=== PATIENT | female | born 1975 | race American Indian/Alaskan Native ===

== ENCOUNTER 2016-11-18 09:23 | Emergency (ER) | payer SELFPAY ==
[2016-11-18 10:00] LABS: Basophils % (Auto) 1.3 % (0.0-1.8); Eosinophils % (Auto) 3.1 % (0.0-4.3); Hematocrit 37.4 % (30.3-42.9); Hemoglobin 11.8 gm/dl (10.1-14.3); Mean Corpuscular HGB Conc 31 % (30-34); Mean Corpuscular Volume 80 fl (79-97); Platelet Count 381 K/mm3 (140-440); Red Blood Count 4.67 M/mm3 (3.65-5.03); Red Cell Distribution Width 16.4 % (13.2-15.2); White Blood Count 7.4 K/mm3 (4.5-11.0)
[2016-11-18 10:01] LABS: Mean Corpuscular Hemoglobin 25 pg (28-32)
[2016-11-18 10:11] LABS: Anion Gap 18 mmol/L; BUN/Creatinine Ratio 15.55; Blood Urea Nitrogen 14 mg/dL (7-17); Calcium 8.7 mg/dL (8.4-10.2); Carbon Dioxide 22 mmol/L (22-30); Chloride 105.7 mmol/L (98-107); Glucose 94 mg/dL (65-100); Sodium 142 mmol/L (137-145)
[2016-11-18 10:40] LABS: Bacteria,Urine 1+ /HPF (Negative); Bilirubin,Urine NEG (Negative); Blood,Urine NEG (Negative); Ketones,Urine NEG (Negative); Leukocyte Esterase,Urine SM (Negative); Mucus,Urine 2+ /HPF; Nitrite,Urine NEG (Negative); Protein,Urine <15 mg/dL mg/dL (Negative)
--- NOTE | 2016-11-18 10:54 | Emergency Department Report ---
ED Abdominal Pain HPI - General Chief Complaint: Abdominal Pain Stated Complaint: ABD PAIN/HEADACHE/DIARRHEA Time Seen by Provider: 11/18/16 10:53 Source: patient Mode of arrival: Ambulatory Limitations: No Limitations - History of Present Illness Initial Comments: Patient describes a crampy generalized abdominal pain associated with diarrhea past few days. She states she is currently nauseated. She has not had any recent vomiting. She's had no signs of GI bleeding. She denies fever or chills sick contacts or any unusual diet or recent travel. She admits medical noncompliance with her prescription for hypertension. MD Complaint: abdominal pain -: days(s) Location: diffuse Radiation: none Migration to: no migration Severity: moderate Severity scale (0 -10): 7 Quality: cramping Consistency: intermittent Improves With: nothing Worsens With: nothing Associated Symptoms: nausea, vomiting, diarrhea - Related Data Home Medications Medication Instructions Recorded Confirmed Last Taken Aspirin [Aspirin TAB] 325 mg PO QDAY 09/16/14 10/24/15 10/24/15 Carvedilol [Coreg] 12.5 mg PO DAILY 09/16/14 10/24/15 10/24/15 Lisinopril 10 mg PO DAILY 09/16/14 10/24/15 10/24/15 Metformin HCl [metFORMIN ER] 500 mg PO BID 09/16/14 10/24/15 10/24/15 Pravastatin (Nf) [Pravachol] 40 mg PO QHS 09/16/14 10/24/15 10/24/15 Topiramate [Topamax] 25 mg PO BID PRN 09/16/14 10/24/15 10/24/15 amLODIPine [Norvasc] 10 mg PO DAILY 09/16/14 10/24/15 10/24/15 Previous Rx's Medication Instructions Recorded Last Taken Type Metaxalone [Skelaxin] 800 mg PO TID PRN #21 tablet 10/24/15 Unknown Rx traMADol [Ultram] 50 mg PO Q4HR PRN #20 tablet 10/24/15 Unknown Rx Cyclobenzaprine HCl [Flexeril 5 MG 5 mg PO Q8HR PRN #10 tab 12/16/15 Unknown Rx TAB] Ondansetron [Zofran TAB] 4 mg PO Q8HR PRN #14 tablet 12/16/15 Unknown Rx Ondansetron [Zofran Odt] 4 mg PO Q6H PRN #7 tab.rapdis 11/18/16 Unknown Rx amLODIPine [Norvasc] 5 mg PO DAILY #30 tab 11/18/16 Unknown Rx traMADol [Ultram] 50 mg PO Q4HR PRN #14 tablet 11/18/16 Unknown Rx Allergies Allergy/AdvReac Type Severity Reaction Status Date / Time morphine Allergy Itching Verified 05/26/14 07:39 Penicillins AdvReac Shortness Verified 05/26/14 07:39 of Breath IVP contrast Allergy Hives Uncoded 05/26/14 07:39 ED Review of Systems ROS: Stated complaint: ABD PAIN/HEADACHE/DIARRHEA Other details as noted in HPI Constitutional: denies: chills, fever Eyes: denies: eye pain, eye discharge, vision change ENT: denies: ear pain, throat pain Respiratory: denies: cough, shortness of breath, wheezing Cardiovascular: denies: chest pain, palpitations Endocrine: no symptoms reported Gastrointestinal: as per HPI Genitourinary: denies: urgency, dysuria, discharge Musculoskeletal: denies: back pain, joint swelling, arthralgia Skin: denies: rash, lesions Neurological: denies: headache, weakness, paresthesias Psychiatric: denies: anxiety, depression Hematological/Lymphatic: denies: easy bleeding, easy bruising ED Past Medical Hx - Past Medical History Previous Medical History?: Yes Hx Hypertension: Yes Hx CVA: Yes (11/2012) Hx Diabetes: Yes Hx Arthritis: Yes Additional medical history: Hyperlipidemia, "herniated disc in neck" - Surgical History Past Surgical History?: No Additional Surgical History: kidney stone removal - Social History Smoking Status: Current Some Day Smoker Substance Use Type: Alcohol - Medications Home Medications: Home Medications Medication Instructions Recorded Confirmed Last Taken Type Aspirin [Aspirin TAB] 325 mg PO QDAY 09/16/14 10/24/15 10/24/15 History Carvedilol [Coreg] 12.5 mg PO DAILY 09/16/14 10/24/15 10/24/15 History Lisinopril 10 mg PO DAILY 09/16/14 10/24/15 10/24/15 History Metformin HCl [metFORMIN ER] 500 mg PO BID 09/16/14 10/24/15 10/24/15 History Pravastatin (Nf) [Pravachol] 40 mg PO QHS 09/16/14 10/24/15 10/24/15 History Topiramate [Topamax] 25 mg PO BID PRN 09/16/14 10/24/15 10/24/15 History amLODIPine [Norvasc] 10 mg PO DAILY 09/16/14 10/24/15 10/24/15 History Metaxalone [Skelaxin] 800 mg PO TID PRN #21 tablet 10/24/15 Unknown Rx traMADol [Ultram] 50 mg PO Q4HR PRN #20 tablet 10/24/15 Unknown Rx Cyclobenzaprine HCl [Flexeril 5 MG 5 mg PO Q8HR PRN #10 tab 12/16/15 Unknown Rx TAB] Ondansetron [Zofran TAB] 4 mg PO Q8HR PRN #14 tablet 12/16/15 Unknown Rx Ondansetron [Zofran Odt] 4 mg PO Q6H PRN #7 tab.rapdis 11/18/16 Unknown Rx amLODIPine [Norvasc] 5 mg PO DAILY #30 tab 11/18/16 Unknown Rx traMADol [Ultram] 50 mg PO Q4HR PRN #14 tablet 11/18/16 Unknown Rx ED Physical Exam - General Limitations: No Limitations General appearance: alert, in no apparent distress - Head Head exam: Present: atraumatic, normocephalic - Eye Eye exam: Present: normal appearance, PERRL, EOMI. Absent: scleral icterus - ENT ENT exam: Present: normal exam, mucous membranes moist - Neck Neck exam: Present: normal inspection. Absent: tenderness, meningismus - Respiratory Respiratory exam: Present: normal lung sounds bilaterally. Absent: respiratory distress - Cardiovascular Cardiovascular Exam: Present: regular rate, normal rhythm. Absent: systolic murmur, diastolic murmur, rubs, gallop - GI/Abdominal GI/Abdominal exam: Present: soft, normal bowel sounds. Absent: distended, tenderness, guarding, rebound, rigid, organomegaly, mass, bruit, pulsatile mass , hernia - Extremities Exam Extremities exam: Present: normal inspection - Back Exam Back exam: Present: normal inspection - Neurological Exam Neurological exam: Present: alert, oriented X3, CN II-XII intact. Absent: motor sensory deficit - Psychiatric Psychiatric exam: Present: normal affect, normal mood - Skin Skin exam: Present: warm, dry, intact, normal color. Absent: rash ED Course Vital Signs 11/18/16 11/18/16 11/18/16 09:35 10:12 12:36 Temperature 98 F 97.6 F Pulse Rate 82 79 Respiratory 18 24 20 Rate Blood Pressure 149/102 Blood Pressure 138/94 [Left] Blood Pressure [Right] O2 Sat by Pulse 100 100 Oximetry 11/18/16 14:13 Temperature 98.6 F Pulse Rate 72 Respiratory 20 Rate Blood Pressure Blood Pressure [Left] Blood Pressure 142/77 [Right] O2 Sat by Pulse 100 Oximetry - Reevaluation(s) Reevaluation #1: He patient Was given fluids and analgesia. She improved. She will be given a prescription for hypertension and a referral for follow-up care. 11/18/16 14:25 ED Medical Decision Making - Lab Data Result diagrams: 11/18/16 09:47 11/18/16 09:47 Laboratory Results - last 24 hr 11/18/16 11/18/16 11/18/16 09:47 09:47 10:28 WBC 7.4 RBC 4.67 Hgb 11.8 Hct 37.4 MCV 80 MCH 25 L MCHC 31 RDW 16.4 H Plt Count 381 Lymph % (Auto) 29.0 [place] % (Auto) 8.7 H Eos % (Auto) 3.1 Baso % (Auto) 1.3 Lymph # 2.2 [place] # 0.6 Eos # 0.2 Baso # 0.1 Seg Neutrophils % 57.9 Seg Neutrophils # 4.3 Sodium 142 Potassium 4.0 Chloride 105.7 Carbon Dioxide 22 Anion Gap 18 BUN 14 Creatinine 0.9 Estimated GFR > 60 BUN/Creatinine Ratio 15.55 Glucose 94 POC Glucose Calcium 8.7 Urine Color Yellow Urine Turbidity Clear Urine pH 5.0 Ur Specific [place] 1.029 Urine Protein <15 mg/dl Urine Glucose (UA) Neg Urine Ketones Neg Urine Blood Neg Urine Nitrite Neg Urine Bilirubin Neg Urine Urobilinogen 2.0 Ur Leukocyte Esterase Sm Urine WBC (Auto) 2.0 Urine RBC (Auto) 3.0 U Epithel Cells (Auto) 6.0 Urine Bacteria (Auto) 1+ Calcium Oxalate Crystal 3+ Urine Mucus 2+ 11/18/16 10:29 WBC RBC Hgb Hct MCV MCH MCHC RDW Plt Count Lymph % (Auto) [place] % (Auto) Eos % (Auto) Baso % (Auto) Lymph # [place] # Eos # Baso # Seg Neutrophils % Seg Neutrophils # Sodium Potassium Chloride Carbon Dioxide Anion Gap BUN Creatinine Estimated GFR BUN/Creatinine Ratio Glucose POC Glucose 110 H Calcium Urine Color Urine Turbidity Urine pH Ur Specific [place] Urine Protein Urine Glucose (UA) Urine Ketones Urine Blood Urine Nitrite Urine Bilirubin Urine Urobilinogen Ur Leukocyte Esterase Urine WBC (Auto) Urine RBC (Auto) U Epithel Cells (Auto) Urine Bacteria (Auto) Calcium Oxalate Crystal Urine Mucus Critical care attestation.: If time is entered above; I have spent that time in minutes in the direct care of this critically ill patient, excluding procedure time. ED Disposition Clinical Impression: Gastroenteritis, Essential hypertension Abdominal pain Qualifiers: Abdominal location: unspecified location Qualified Code(s): R10.9 - Unspecified abdominal pain Disposition: TO HOME OR SELFCARE Is pt being admited?: No Does the pt Need Aspirin: No Condition: Stable Instructions: Abdominal Pain (ED), Hypertension (ED) Additional Instructions: Light diet and advance as tolerated. Follow up with primary care provider. Return any acute change or worsening symptoms. Prescriptions: amLODIPine [Norvasc] 5 mg PO DAILY #30 tab Ondansetron [Zofran Odt] 4 mg PO Q6H PRN #7 tab.rapdis PRN Reason: Nausea traMADol [Ultram] 50 mg PO Q4HR PRN #14 tablet PRN Reason: Pain Referrals: PRIMARY CARE, [Primary Care Provider] - 3-5 Days Time of Disposition: 14:29
[2016-11-18] MEDS ORDERED: NACL 0.9% 1000 ML 1,000 ML IV ONE (12:08)
[2016-11-18] MEDS ORDERED: ZOFRAN IV ONE (12:08)
[2016-11-18] MEDS ORDERED: BENADRYL IV ONE (12:08)
[2016-11-18] MEDS ORDERED: DILAUDID IV ONE (12:10)
[2016-11-18 14:14] VITALS: BP 142/77
== END 2016-11-18 16:09 | disposition home or self-care (01) ==
LOC: ED 09:23
DX: K52.9 Noninfective gastroenteritis and colitis, unspecified (principal); I10 Essential (primary) hypertension; M19.90 Unspecified osteoarthritis, unspecified site; E11.9 Type 2 diabetes mellitus without complications; Z72.0 Tobacco use; Z86.73 Personal history of transient ischemic attack (TIA), and cerebral infarction without residual deficits; Z79.82 Long term (current) use of aspirin; Z88.5 Allergy status to narcotic agent; Z88.0 Allergy status to penicillin; Z91.041 Radiographic dye allergy status
CPT/HCPCS: 36415; 80048; 81001; 81025; 82962; 85025; 96361; 96374; 96375; 99283; J1170; J1200; J2405; J7030

== ENCOUNTER 2016-12-14 08:26 | Emergency (ER) | payer SELFPAY ==
[2016-12-14 08:54] VITALS: BP 160/100
[2016-12-14 09:23] LABS: Basophils % (Auto) 1.1 % (0.0-1.8); Eosinophils % (Auto) 1.9 % (0.0-4.3); Hematocrit 37.1 % (30.3-42.9); Hemoglobin 11.7 gm/dl (10.1-14.3); Mean Corpuscular HGB Conc 32 % (30-34); Mean Corpuscular Volume 80 fl (79-97); Platelet Count 367 K/mm3 (140-440); Red Blood Count 4.65 M/mm3 (3.65-5.03); Red Cell Distribution Width 15.9 % (13.2-15.2)
[2016-12-14 09:27] LABS: Mean Corpuscular Hemoglobin 25 pg (28-32)
[2016-12-14 09:47] LABS: Alanine Aminotransferase 14 units/L (7-56); Albumin 3.8 g/dL (3.9-5); Albumin/Globulin Ratio 1.3 %; Alkaline Phosphatase 76 units/L (35-129); Anion Gap 15 mmol/L; Blood Urea Nitrogen 10 mg/dL (7-17); Calcium 8.9 mg/dL (8.4-10.2); Carbon Dioxide 25 mmol/L (22-30); Chloride 103.7 mmol/L (98-107); Glucose 111 mg/dL (65-100); Potassium 3.7 mmol/L (3.6-5.0); Sodium 140 mmol/L (137-145); Total Protein 6.8 g/dL (6.3-8.2)
--- NOTE | 2016-12-14 10:21 | Emergency Department Report ---
ED Syncope HPI - General Chief Complaint: Syncope Stated Complaint: SYNCOPAL EPISODE Time Seen by Provider: 12/14/16 10:06 Source: patient, police, EMS Exam Limitations: no limitations - History of Present Illness Initial Comments: 41 years old female history of hypertension borderline diabetes and CVA with left side weakness that is has no residual now. Patient stated that she was riding the bus to the [employer] station when she stand up to go down, she passed out fell and hit her head. Patient stated that she lost her consciousness for a few seconds. She is complaining of headache. She stated that she has some shortness of breath when she stands up but that is gone now. Patient denied any focal weakness or numbness or tingling sensation. No bowel or bladder dysfunction. Timing/Prior Episodes: single episode today Precipitating Factors: Positive: lightheadedness Context: standing Loss of Consciousness: brief (seconds) Current Symptoms: back to normal, headache, injury - Related Data Allergies/Adverse Reactions: Allergies morphine Allergy (Verified 12/14/16 08:47) Itching Penicillins Adverse Reaction (Verified 12/14/16 08:47) Shortness of Breath IVP contrast Allergy (Uncoded 05/26/14 07:39) Hives Home Medications: Ambulatory Orders Aspirin [Aspirin TAB] 325 mg PO QDAY 09/16/14 Carvedilol [Coreg] 12.5 mg PO DAILY 09/16/14 Lisinopril 10 mg PO DAILY 09/16/14 Metformin HCl [metFORMIN ER] 500 mg PO BID 09/16/14 Pravastatin (Nf) [Pravachol] 40 mg PO QHS 09/16/14 Topiramate [Topamax] 25 mg PO BID PRN 09/16/14 amLODIPine [Norvasc] 10 mg PO DAILY 09/16/14 Metaxalone [Skelaxin] 800 mg PO TID PRN #21 tablet 10/24/15 traMADol [Ultram] 50 mg PO Q4HR PRN #20 tablet 10/24/15 Cyclobenzaprine HCl [Flexeril 5 MG TAB] 5 mg PO Q8HR PRN #10 tab 12/16/15 Ondansetron [Zofran TAB] 4 mg PO Q8HR PRN #14 tablet 12/16/15 Ondansetron [Zofran Odt] 4 mg PO Q6H PRN #7 tab.rapdis 11/18/16 amLODIPine [Norvasc] 5 mg PO DAILY #30 tab 11/18/16 traMADol [Ultram] 50 mg PO Q4HR PRN #14 tablet 11/18/16 Metaxalone [Skelaxin] 800 mg PO TID #30 tablet 12/14/16 Naproxen [Naprosyn] 500 mg PO BID #14 tablet 12/14/16 ED Review of Systems ROS: Stated complaint: SYNCOPAL EPISODE Other details as noted in HPI Comment: All other systems reviewed and negative Constitutional: denies: chills, diaphoresis Eyes: denies: eye pain, eye discharge, vision change ENT: denies: epistaxis Respiratory: denies: cough, orthopnea, shortness of breath, SOB with exertion, SOB at rest Cardiovascular: denies: chest pain, palpitations Gastrointestinal: denies: abdominal pain, nausea, vomiting, diarrhea Neurological: headache. denies: weakness, numbness, paresthesias, confusion, abnormal gait, vertigo ED Past Medical Hx - Past Medical History Hx Hypertension: Yes Hx CVA: Yes (11/2012) Hx Diabetes: Yes Hx Arthritis: Yes Additional medical history: Hyperlipidemia, "herniated disc in neck" - Surgical History Additional Surgical History: kidney stone removal - Social History Smoking Status: Current Some Day Smoker - Medications Home Medications: Home Medications Medication Instructions Recorded Confirmed Last Taken Type Aspirin [Aspirin TAB] 325 mg PO QDAY 09/16/14 10/24/15 10/24/15 History Carvedilol [Coreg] 12.5 mg PO DAILY 09/16/14 10/24/15 10/24/15 History Lisinopril 10 mg PO DAILY 09/16/14 10/24/15 10/24/15 History Metformin HCl [metFORMIN ER] 500 mg PO BID 09/16/14 10/24/15 10/24/15 History Pravastatin (Nf) [Pravachol] 40 mg PO QHS 09/16/14 10/24/15 10/24/15 History Topiramate [Topamax] 25 mg PO BID PRN 09/16/14 10/24/15 10/24/15 History amLODIPine [Norvasc] 10 mg PO DAILY 09/16/14 10/24/15 10/24/15 History Metaxalone [Skelaxin] 800 mg PO TID PRN #21 tablet 10/24/15 Unknown Rx traMADol [Ultram] 50 mg PO Q4HR PRN #20 tablet 10/24/15 Unknown Rx Cyclobenzaprine HCl [Flexeril 5 MG 5 mg PO Q8HR PRN #10 tab 12/16/15 Unknown Rx TAB] Ondansetron [Zofran TAB] 4 mg PO Q8HR PRN #14 tablet 12/16/15 Unknown Rx Ondansetron [Zofran Odt] 4 mg PO Q6H PRN #7 tab.rapdis 11/18/16 Unknown Rx amLODIPine [Norvasc] 5 mg PO DAILY #30 tab 11/18/16 Unknown Rx traMADol [Ultram] 50 mg PO Q4HR PRN #14 tablet 11/18/16 Unknown Rx Metaxalone [Skelaxin] 800 mg PO TID #30 tablet 12/14/16 Unknown Rx Naproxen [Naprosyn] 500 mg PO BID #14 tablet 12/14/16 Unknown Rx ED Physical Exam - General Limitations: No Limitations General appearance: alert, in no apparent distress - Head Head exam: Present: other (tenderness posterior skull) - Eye Eye exam: Present: normal appearance Pupils: Present: normal accommodation - ENT ENT exam: Present: normal exam, normal orophraynx, mucous membranes moist - Neck Neck exam: Present: normal inspection, full ROM. Absent: tenderness, meningismus, lymphadenopathy, thyromegaly - Respiratory Respiratory exam: Present: normal lung sounds bilaterally. Absent: respiratory distress, wheezes, rales, rhonchi, stridor, chest wall tenderness - Cardiovascular Cardiovascular Exam: Present: regular rate, normal rhythm, normal heart sounds - GI/Abdominal GI/Abdominal exam: Present: soft. Absent: distended, tenderness, guarding, rebound, rigid, normal bowel sounds - Extremities Exam Extremities exam: Present: normal inspection, full ROM. Absent: tenderness - Back Exam Back exam: Present: normal inspection, tenderness (thoracic spine). Absent: CVA tenderness (R), CVA tenderness (L), muscle spasm, paraspinal tenderness, vertebral tenderness - Neurological Exam Neurological exam: Present: alert, oriented X3, CN II-XII intact - Skin Skin exam: Present: warm, intact, normal color ED Course Vital Signs 12/14/16 12/14/16 08:40 10:55 Temperature 97.5 F L Pulse Rate 75 Respiratory 18 18 Rate Blood Pressure 160/100 O2 Sat by Pulse 100 Oximetry - Reevaluation(s) Reevaluation #1: 12/14/16 12:03 Patient stated that she is feeling much better. Denied any chest pain or shortness of breath at this moment, no dizziness or syncope. CT brain came back with no acute abnormality, chest x-ray and thoracic spine came back negative. I informed the patient about her positive urine drug screen for cocaine patient denied using cocaine. I counseled the patient on that. Patient will be discharged home to follow-up with her primary care physician. 12/14/16 19:18 ED Medical Decision Making - Lab Data Result diagrams: 12/14/16 09:01 12/14/16 09:01 - EKG Data -: EKG Interpreted by Me EKG shows normal: sinus rhythm Rate: normal - EKG Data When compared to previous EKG there are: no significant change Interpretation: no acute changes - Radiology Data Radiology results: report reviewed CT brain, x-ray lumbar x-ray chest was no acute abnormality - Medical Decision Making Patient labs and x-ray and CT scan reviewed which showed no acute abnormality patient is feeling much better no evidence of stroke at this moment or pulmonary embolism or acute coronary syndrome patient will be discharged home to follow up with her primary care physician. Critical care attestation.: If time is entered above; I have spent that time in minutes in the direct care of this critically ill patient, excluding procedure time. ED Disposition Clinical Impression: Syncope, Chest pain Disposition: DC-01 TO HOME OR SELFCARE Is pt being admited?: No Condition: Stable Instructions: Syncope (ED), Chest Pain (ED) Prescriptions: Metaxalone [Skelaxin] 800 mg PO TID #30 tablet Naproxen [Naprosyn] 500 mg PO BID #14 tablet Referrals: PRIMARY CARE, [Primary Care Provider] - 3-5 Days Forms: Work/School Release Form(ED)
[2016-12-14 10:35] LABS: Urine Drugs of Abuse Note Disclamer
[2016-12-14] MEDS ORDERED: TYLENOL PO ONE (10:49)
[2016-12-14 10:56] LABS: Bilirubin,Urine NEG (Negative); Blood,Urine NEG (Negative); Ketones,Urine NEG (Negative); Leukocyte Esterase,Urine NEG (Negative); Nitrite,Urine NEG (Negative); RBC,Urine < 1.0 /HPF (0.0-6.0); Urobilinogen,Urine < 2.0 mg/dL (<2.0)
--- NOTE | 2016-12-14 11:00 | Cat Scan Report ---
CT scan of head without IV contrast: History: Injury. Findings: Ventricles are normal in size and midline in location. No evidence of acute ischemia, hemorrhage or mass. No extra axial fluid collection. Normal brainstem and cerebellum. Normal sinuses and mastoid air cells. No evidence of fracture of the calvarium. Impression: No acute intracranial abnormality.
--- NOTE | 2016-12-14 11:50 | XRay Report ---
AP CHEST: HISTORY: chest pain AP view of the chest demonstrates a normal mediastinal and cardiac contour with clear lungs and normal bony and soft tissue structures. IMPRESSION: Unremarkable AP chest.
--- NOTE | 2016-12-14 11:51 | XRay Report ---
THORACIC SPINE, 2 views: History: Back pain, injury. There is moderate multilevel degenerative disc disease throughout the thoracic spine. There is no evidence for displaced fracture, compression deformity or subluxation. The posterior ribs are grossly intact. IMPRESSION: Mild thoracic spondylosis. No acute injury is appreciated.
== END 2016-12-14 12:35 | disposition home or self-care (01) ==
LOC: ED 08:26
DX: R55 Syncope and collapse (principal); R07.9 Chest pain, unspecified; I10 Essential (primary) hypertension; Z86.73 Personal history of transient ischemic attack (TIA), and cerebral infarction without residual deficits; M19.90 Unspecified osteoarthritis, unspecified site; F17.200 Nicotine dependence, unspecified, uncomplicated; Z88.0 Allergy status to penicillin; Z88.5 Allergy status to narcotic agent
CPT/HCPCS: 36415; 70450; 71010; 72070; 80053; 80307; 81001; 82962; 83735; 84703; 85025; 85379; 93005; 93010; 99285; G0480; 80320

== ENCOUNTER 2017-02-21 07:47 | Emergency (ER) | payer OTHER ==
[2017-02-21 08:25] LABS: Basophils % (Auto) 1.3 % (0.0-1.8); Eosinophils % (Auto) 3.9 % (0.0-4.3); Hematocrit 36.6 % (30.3-42.9); Hemoglobin 11.7 gm/dl (10.1-14.3); Mean Corpuscular HGB Conc 32 % (30-34); Mean Corpuscular Hemoglobin 26 pg (28-32); Mean Corpuscular Volume 80 fl (79-97); Platelet Count 344 K/mm3 (140-440); Red Blood Count 4.57 M/mm3 (3.65-5.03); Red Cell Distribution Width 15.8 % (13.2-15.2); White Blood Count 6.9 K/mm3 (4.5-11.0)
[2017-02-21 08:36] LABS: Anion Gap 17 mmol/L; BUN/Creatinine Ratio 9; Blood Urea Nitrogen 7 mg/dL (7-17); Calcium 8.5 mg/dL (8.4-10.2); Carbon Dioxide 22 mmol/L (22-30); Chloride 104.5 mmol/L (98-107); Glucose 99 mg/dL (65-100); Potassium 3.8 mmol/L (3.6-5.0); Sodium 140 mmol/L (137-145)
[2017-02-21] MEDS ORDERED: ZOFRAN ODT PO ONE (12:48)
--- NOTE | 2017-02-21 12:54 | Emergency Department Report ---
HPI - General Chief Complaint: Nausea/Vomiting/Diarrhea Time Seen by Provider: 02/21/17 12:40 - HPI HPI: Room 5 The patient is a 41-year-old female presenting with a chief complaint of nausea and vomiting. The patient states 3 days ago she ate some egg drop soup in the evening. The patient states the following morning approximately 12 hours after ingestion she developed frequent nausea/vomiting and diarrhea. Patient states she's had intermittent cramping periumbilical abdominal pain. Patient admits to subjective fever. Patient denies any sick contacts and states no one else ate soup. Patient denies any unexplained weight loss. Location: Abdomen Duration: 2 days Quality: Cramping Severity: Moderate Modifying factors: [see above] Context: [see above] Mode of transportation: The patient drove herself to the emergency department and there are no visitors present ED Past Medical Hx - Past Medical History Hx Hypertension: Yes Hx CVA: Yes (11/2012) Hx Diabetes: Yes Hx Arthritis: Yes Hx Kidney Stones: Yes Additional medical history: Hyperlipidemia, "herniated disc in neck" - Surgical History Additional Surgical History: kidney stone removal - Family History Family history: no significant - Social History Smoking Status: Current Some Day Smoker Substance Use Type: None (denies illicit drug use), Alcohol (occasional) - Medications Home Medications: Home Medications Medication Instructions Recorded Confirmed Last Taken Type Aspirin [Aspirin TAB] 325 mg PO QDAY 09/16/14 10/24/15 10/24/15 History Carvedilol [Coreg] 12.5 mg PO DAILY 09/16/14 10/24/15 10/24/15 History Lisinopril 10 mg PO DAILY 09/16/14 10/24/15 10/24/15 History Metformin HCl [metFORMIN ER] 500 mg PO BID 09/16/14 10/24/15 10/24/15 History Pravastatin [Pravachol] 40 mg PO QHS 09/16/14 10/24/15 10/24/15 History Topiramate [Topamax] 25 mg PO BID PRN 09/16/14 10/24/15 10/24/15 History amLODIPine [Norvasc] 10 mg PO DAILY 09/16/14 10/24/15 10/24/15 History Metaxalone [Skelaxin] 800 mg PO TID PRN #21 tablet 10/24/15 Unknown Rx traMADol [Ultram] 50 mg PO Q4HR PRN #20 tablet 10/24/15 Unknown Rx Cyclobenzaprine HCl [Flexeril 5 MG 5 mg PO Q8HR PRN #10 tab 12/16/15 Unknown Rx TAB] Ondansetron [Zofran TAB] 4 mg PO Q8HR PRN #14 tablet 12/16/15 Unknown Rx Ondansetron [Zofran Odt] 4 mg PO Q6H PRN #7 tab.rapdis 11/18/16 Unknown Rx amLODIPine [Norvasc] 5 mg PO DAILY #30 tab 11/18/16 Unknown Rx traMADol [Ultram] 50 mg PO Q4HR PRN #14 tablet 11/18/16 Unknown Rx Metaxalone [Skelaxin] 800 mg PO TID #30 tablet 12/14/16 Unknown Rx Naproxen [Naprosyn] 500 mg PO BID #14 tablet 12/14/16 Unknown Rx Diphenoxylate HCl/Atropine 2 each PO QID PRN #20 tablet 02/21/17 Unknown Rx [Lomotil 2.5-0.025 mg Tablet] Ondansetron [Zofran ODT TAB] 8 mg PO Q8HR #20 tab.rapdis 02/21/17 Unknown Rx traMADol [Ultram] 50 mg PO Q6HR PRN #14 tablet 02/21/17 Unknown Rx ED Review of Systems ROS: Stated complaint: NAUSEA/VOMITING/ABDOMINAL PAIN Other details as noted in HPI Constitutional: fever (subjective) Gastrointestinal: abdominal pain, nausea, vomiting, diarrhea Physical Exam - Physical Exam Vital Signs: Vital Signs 02/21/17 07:56 Temperature 98.3 F Pulse Rate 88 Respiratory 18 Rate Blood Pressure 170/105 O2 Sat by Pulse 100 Oximetry Physical Exam: GENERAL: The patient is well-developed well-nourished female lying on stretcher not appearing to be in acute distress. [] HEENT: Normocephalic. Atraumatic. Extraocular motions are intact. Patient has moist mucous membranes. NECK: Supple. Trachea midline CHEST/LUNGS: Clear to auscultation. There is no respiratory distress noted. HEART/CARDIOVASCULAR: Regular. There is no tachycardia. There is no gallop rub or murmur. ABDOMEN: Abdomen is soft, nontender. Patient has normal bowel sounds. There is no abdominal distention. SKIN: There is no rash. There is no edema. There is no diaphoresis. NEURO: The patient is awake, alert, and oriented. The patient is cooperative. The patient has normal speech MUSCULOSKELETAL: There is no evidence of acute injury. ED Course Vital Signs 02/21/17 07:56 Temperature 98.3 F Pulse Rate 88 Respiratory 18 Rate Blood Pressure 170/105 O2 Sat by Pulse 100 Oximetry - Reevaluation(s) Reevaluation #1: 02/21/17 13:37 Patient tolerating po and states that it "feels good" per nurse ED Medical Decision Making - Lab Data Result diagrams: 02/21/17 08:04 02/21/17 08:04 - Radiology Data Radiology results: image reviewed (two-view abdominal x-ray) interpreted by me: Two-view abdominal [id number] bowel gas pattern. No air-fluid levels, no free air - Differential Diagnosis gastroenteritis, peptic ulcer disease, gastritis, pSBO Critical care attestation.: If time is entered above; I have spent that time in minutes in the direct care of this critically ill patient, excluding procedure time. ED Disposition Clinical Impression: Acute gastroenteritis, Nausea vomiting and diarrhea Disposition: DC-01 TO HOME OR SELFCARE Is pt being admited?: No Does the pt Need Aspirin: No Condition: Stable Instructions: Acute Nausea and Vomiting (ED) Additional Instructions: Return to the emergency department immediately should you develop worsening symptoms, fever, inability to tolerate food or liquid or any other concerns. Prescriptions: Diphenoxylate HCl/Atropine [Lomotil 2.5-0.025 mg Tablet] 2 each PO QID PRN #20 tablet PRN Reason: Diarrhea Ondansetron [Zofran ODT TAB] 8 mg PO Q8HR #20 tab.rapdis traMADol [Ultram] 50 mg PO Q6HR PRN #14 tablet PRN Reason: Pain Referrals: PRIMARY CARE, [Primary Care Provider] - 3-5 Days TWILA SOMERS MD [Staff Physician] - 3-5 Days (Dr. Somers is a chairman president and chief executive officer. Please follow up with him for further evaluation) Time of Disposition: 13:38
[2017-02-21 13:31] LABS: Alanine Aminotransferase 11 units/L (7-56); Albumin 4.1 g/dL (3.9-5); Albumin/Globulin Ratio 1.2 %; Alkaline Phosphatase 81 units/L (35-129); Lipase 41 units/L (13-60); Total Protein 7.6 g/dL (6.3-8.2)
[2017-02-21 13:46] VITALS: BP 149/97
[2017-02-21 14:01] LABS: Bilirubin,Direct < 0.2 mg/dL (0-0.2)
--- NOTE | 2017-02-21 14:59 | XRay Report ---
Flat and upright views of the abdomen. Findings: The bowel gas pattern is unremarkable. No free air seen on the upright view. The bony structures are grossly normal. No mass effect or evidence of organomegaly. Impression: No significant findings.
== END 2017-02-21 13:56 | disposition home or self-care (01) ==
LOC: ED 07:47
DX: K52.9 Noninfective gastroenteritis and colitis, unspecified (principal); I10 Essential (primary) hypertension; E11.9 Type 2 diabetes mellitus without complications; M19.90 Unspecified osteoarthritis, unspecified site; F17.200 Nicotine dependence, unspecified, uncomplicated; E78.5 Hyperlipidemia, unspecified; Z79.82 Long term (current) use of aspirin; Z86.73 Personal history of transient ischemic attack (TIA), and cerebral infarction without residual deficits
CPT/HCPCS: 36415; 74020; 80048; 80074; 82962; 83690; 84703; 85025; 99284; Q0162

== ENCOUNTER 2017-03-28 09:50 | Emergency (ER) | payer OTHER ==
--- NOTE | 2017-03-28 12:19 | XRay Report ---
ROUTINE CHEST, TWO VIEWS: HISTORY: cough. The trachea, heart, mediastinal contour, lung zhao and bony thorax are unremarkable. IMPRESSION: Unremarkable chest x-ray.
[2017-03-28] MEDS ORDERED: ZOFRAN IM ONE (13:12)
[2017-03-28] MEDS ORDERED: TORADOL IM ONE (13:12)
--- NOTE | 2017-03-28 13:20 | Emergency Department Report ---
- General Chief Complaint: Upper Respiratory Infection Stated Complaint: FLU LIKE SYMPTOMS Time Seen by Provider: 03/28/17 13:11 Source: patient Mode of arrival: Ambulatory Limitations: No Limitations - History of Present Illness MD Complaint: fever, cough, sore throat, rhinorrhea, nasal congestion, sinus pain Onset/Timin -: week(s) Severity: moderate Severity scale (0 -10): 4 Quality: aching Consistency: constant Improves With: nothing Worsens With: nothing Context: sick contacts Associated Symptoms: fever, chills, myalgias, rhinorrhea, nasal congestion, sore throat, cough, nausea, vomiting, diarrhea. denies: weight loss, epistaxis - Related Data Home Medications Medication Instructions Recorded Confirmed Last Taken Aspirin [Aspirin TAB] 325 mg PO QDAY 09/16/14 10/24/15 10/24/15 Carvedilol [Coreg] 12.5 mg PO DAILY 09/16/14 10/24/15 10/24/15 Lisinopril 10 mg PO DAILY 09/16/14 10/24/15 10/24/15 Metformin HCl [metFORMIN ER] 500 mg PO BID 09/16/14 10/24/15 10/24/15 Pravastatin [Pravachol] 40 mg PO QHS 09/16/14 10/24/15 10/24/15 Topiramate [Topamax] 25 mg PO BID PRN 09/16/14 10/24/15 10/24/15 amLODIPine [Norvasc] 10 mg PO DAILY 09/16/14 10/24/15 10/24/15 Previous Rx's Medication Instructions Recorded Last Taken Type Metaxalone [Skelaxin] 800 mg PO TID PRN #21 tablet 10/24/15 Unknown Rx traMADol [Ultram] 50 mg PO Q4HR PRN #20 tablet 10/24/15 Unknown Rx Cyclobenzaprine HCl [Flexeril 5 MG 5 mg PO Q8HR PRN #10 tab 12/16/15 Unknown Rx TAB] Ondansetron [Zofran TAB] 4 mg PO Q8HR PRN #14 tablet 12/16/15 Unknown Rx Ondansetron [Zofran Odt] 4 mg PO Q6H PRN #7 tab.rapdis 11/18/16 Unknown Rx amLODIPine [Norvasc] 5 mg PO DAILY #30 tab 11/18/16 Unknown Rx traMADol [Ultram] 50 mg PO Q4HR PRN #14 tablet 11/18/16 Unknown Rx Metaxalone [Skelaxin] 800 mg PO TID #30 tablet 12/14/16 Unknown Rx Naproxen [Naprosyn] 500 mg PO BID #14 tablet 12/14/16 Unknown Rx Diphenoxylate HCl/Atropine 2 each PO QID PRN #20 tablet 02/21/17 Unknown Rx [Lomotil 2.5-0.025 mg Tablet] Ondansetron [Zofran ODT TAB] 8 mg PO Q8HR #20 tab.rapdis 02/21/17 Unknown Rx traMADol [Ultram] 50 mg PO Q6HR PRN #14 tablet 02/21/17 Unknown Rx ALBUTEROL Inhaler [ProAir HFA 2 puff IH QID PRN #1 inhalation 03/28/17 Unknown Rx Inhaler] Azithromycin 250 mg PO DAILY #6 tablet 03/28/17 Unknown Rx Ibuprofen 800 mg PO TID PRN #30 tablet 03/28/17 Unknown Rx Promethazine [Phenergan TAB] 25 mg PO Q8HR PRN #12 tab 03/28/17 Unknown Rx Allergies Allergy/AdvReac Type Severity Reaction Status Date / Time morphine Allergy Itching Verified 02/21/17 07:56 Penicillins AdvReac Shortness Verified 02/21/17 07:56 of Breath IVP contrast Allergy Intermediate Hives Uncoded 02/21/17 07:56 ED Review of Systems ROS: Stated complaint: FLU LIKE SYMPTOMS Other details as noted in HPI Constitutional: chills, fever, malaise Eyes: denies: eye pain, eye discharge, vision change ENT: ear pain, throat pain, congestion Respiratory: cough. denies: shortness of breath, wheezing Cardiovascular: denies: chest pain, palpitations Endocrine: no symptoms reported Gastrointestinal: nausea, vomiting, diarrhea Genitourinary: denies: urgency, dysuria, discharge Musculoskeletal: denies: back pain, joint swelling, arthralgia Skin: denies: rash, lesions Neurological: denies: headache, weakness, paresthesias Psychiatric: denies: anxiety, depression Hematological/Lymphatic: denies: easy bleeding, easy bruising ED Past Medical Hx - Past Medical History Hx Hypertension: Yes Hx CVA: Yes (11/2012) Hx Diabetes: Yes Hx Arthritis: Yes Hx Kidney Stones: Yes Additional medical history: Hyperlipidemia, "herniated disc in neck" - Surgical History Additional Surgical History: kidney stone removal - Social History Smoking Status: Never Smoker Substance Use Type: None - Medications Home Medications: Home Medications Medication Instructions Recorded Confirmed Last Taken Type Aspirin [Aspirin TAB] 325 mg PO QDAY 09/16/14 10/24/15 10/24/15 History Carvedilol [Coreg] 12.5 mg PO DAILY 09/16/14 10/24/15 10/24/15 History Lisinopril 10 mg PO DAILY 09/16/14 10/24/15 10/24/15 History Metformin HCl [metFORMIN ER] 500 mg PO BID 09/16/14 10/24/15 10/24/15 History Pravastatin [Pravachol] 40 mg PO QHS 09/16/14 10/24/15 10/24/15 History Topiramate [Topamax] 25 mg PO BID PRN 09/16/14 10/24/15 10/24/15 History amLODIPine [Norvasc] 10 mg PO DAILY 09/16/14 10/24/15 10/24/15 History Metaxalone [Skelaxin] 800 mg PO TID PRN #21 tablet 10/24/15 Unknown Rx traMADol [Ultram] 50 mg PO Q4HR PRN #20 tablet 10/24/15 Unknown Rx Cyclobenzaprine HCl [Flexeril 5 MG 5 mg PO Q8HR PRN #10 tab 12/16/15 Unknown Rx TAB] Ondansetron [Zofran TAB] 4 mg PO Q8HR PRN #14 tablet 12/16/15 Unknown Rx Ondansetron [Zofran Odt] 4 mg PO Q6H PRN #7 tab.rapdis 11/18/16 Unknown Rx amLODIPine [Norvasc] 5 mg PO DAILY #30 tab 11/18/16 Unknown Rx traMADol [Ultram] 50 mg PO Q4HR PRN #14 tablet 11/18/16 Unknown Rx Metaxalone [Skelaxin] 800 mg PO TID #30 tablet 12/14/16 Unknown Rx Naproxen [Naprosyn] 500 mg PO BID #14 tablet 12/14/16 Unknown Rx Diphenoxylate HCl/Atropine 2 each PO QID PRN #20 tablet 02/21/17 Unknown Rx [Lomotil 2.5-0.025 mg Tablet] Ondansetron [Zofran ODT TAB] 8 mg PO Q8HR #20 tab.rapdis 02/21/17 Unknown Rx traMADol [Ultram] 50 mg PO Q6HR PRN #14 tablet 02/21/17 Unknown Rx ALBUTEROL Inhaler [ProAir HFA 2 puff IH QID PRN #1 inhalation 03/28/17 Unknown Rx Inhaler] Azithromycin 250 mg PO DAILY #6 tablet 03/28/17 Unknown Rx Ibuprofen 800 mg PO TID PRN #30 tablet 03/28/17 Unknown Rx Promethazine [Phenergan TAB] 25 mg PO Q8HR PRN #12 tab 03/28/17 Unknown Rx ED Physical Exam - General Limitations: No Limitations General appearance: alert, in no apparent distress - Head Head exam: Present: atraumatic, normocephalic - Eye Eye exam: Present: normal appearance, PERRL, EOMI Pupils: Present: normal accommodation - ENT ENT exam: Present: mucous membranes moist - Expanded ENT Exam Expanded Ear exam: Present: normal external inspection TM/Canal exam: Erythema: Right TM, Left TM, Canal Tenderness: Right TM, Left TM Mouth exam: Absent: trismus Throat exam: Positive: tonsillar erythema, tonsillomegaly. Negative: tonsillar exudate, R peritonsillar mass, L peritonsillar mass - Neck Neck exam: Present: normal inspection, full ROM. Absent: lymphadenopathy, thyromegaly - Respiratory Respiratory exam: Present: normal lung sounds bilaterally, chest wall tenderness. Absent: respiratory distress, wheezes, rhonchi, stridor - Cardiovascular Cardiovascular Exam: Present: regular rate, normal rhythm, normal heart sounds. Absent: systolic murmur, diastolic murmur, rubs, gallop - GI/Abdominal GI/Abdominal exam: Present: soft, normal bowel sounds. Absent: distended, tenderness, guarding, rebound, rigid, mass, bruit, hernia - Rectal Rectal exam: Present: deferred - Extremities Exam Extremities exam: Present: normal inspection - Back Exam Back exam: Present: normal inspection - Neurological Exam Neurological exam: Present: alert, oriented X3, CN II-XII intact, normal gait - Psychiatric Psychiatric exam: Present: normal affect, normal mood - Skin Skin exam: Present: warm, dry, intact, normal color. Absent: rash ED Course Vital Signs 03/28/17 10:41 Temperature 98.4 F Pulse Rate 91 H Respiratory 24 Rate Blood Pressure 146/92 O2 Sat by Pulse 100 Oximetry ED Medical Decision Making - Medical Decision Making Patient is a 41-year-old [place] female presents with flulike symptoms including fever cough sore throat cough productive clear nausea vomiting diarrhea intermittently times one week last diarrhea yesterday last nausea and vomiting this a.m., patient denies dizziness no chest pain or shortness of breath patient and will toward ED chest x-ray normal infiltrate no opacities signs noted no cardiac tachypnea or respiratory distress patient is afebrile ENT bilateral TM erythema pain nose boggy turbinate erythema no polyps instruction pharynx moderate erythema and no swelling no exudate no lesions uvula midline no stridor lungs clear bilateral lobes no wheezing plan Zofran and by mouth challenge by mouth challenge successful DC to home in stable condition treatment for URI , pt is tolerating po intake without n/v at this time will dc to home with tx for URI with AOM, pt will follow up with pcp in 2- 3 days , pt verbalized agreement and understanding of same. Critical care attestation.: If time is entered above; I have spent that time in minutes in the direct care of this critically ill patient, excluding procedure time. ED Disposition Clinical Impression: URI (upper respiratory infection) Qualifiers: URI type: unspecified viral URI Qualified Code(s): J06.9 - Acute upper respiratory infection, unspecified; B97.89 - Other viral agents as the cause of diseases classified elsewhere; B97.89 - Other viral agents as the cause of diseases classified elsewhere AOM (acute otitis media) Qualifiers: Otitis media type: serous Laterality: bilateral Recurrence: not specified as recurrent Qualified Code(s): H65.03 - Acute serous otitis media, bilateral Nausea and vomiting Qualifiers: Vomiting Intractability: non-intractable Disposition: DC-01 TO HOME OR SELFCARE Is pt being admited?: No Does the pt Need Aspirin: No Condition: Good Instructions: Upper Respiratory Infection (ED), Otitis Media (ED), Acute Nausea and Vomiting (ED) Prescriptions: ALBUTEROL Inhaler [ProAir HFA Inhaler] 2 puff IH QID PRN #1 inhalation PRN Reason: Shortness Of Breath Azithromycin 250 mg PO DAILY #6 tablet Ibuprofen 800 mg PO TID PRN #30 tablet PRN Reason: pain and fever Promethazine [Phenergan TAB] 25 mg PO Q8HR PRN #12 tab PRN Reason: Nausea Referrals: MARLENA NOONAN MD [Staff Physician] - 3-5 Days Forms: Work/School Release Form(ED) Time of Disposition: 14:23
[2017-03-28 14:55] VITALS: BP 141/87
== END 2017-03-28 14:54 | disposition home or self-care (01) ==
LOC: ED 09:50
DX: J06.9 Acute upper respiratory infection, unspecified (principal); H65.03 Acute serous otitis media, bilateral; B97.89 Other viral agents as the cause of diseases classified elsewhere; E78.5 Hyperlipidemia, unspecified; R19.7 Diarrhea, unspecified; Z79.82 Long term (current) use of aspirin; Z79.899 Other long term (current) drug therapy; Z88.0 Allergy status to penicillin; Z88.5 Allergy status to narcotic agent
CPT/HCPCS: 71046; 87400; 96372; 99283; J1885; J2405

== ENCOUNTER 2017-05-14 13:26 | Emergency (ER) | payer SELFPAY ==
[2017-05-14 14:19] LABS: Mean Corpuscular HGB Conc 30 % (30-34); Mean Corpuscular Volume 79 fl (79-97); Platelet Count 357 K/mm3 (140-440); Red Blood Count 4.96 M/mm3 (3.65-5.03); Red Cell Distribution Width 15.5 % (13.2-15.2)
[2017-05-14 14:20] LABS: Hematocrit 39.4 % (30.3-42.9); Hemoglobin 11.9 gm/dl (10.1-14.3)
[2017-05-14 14:21] LABS: Mean Corpuscular Hemoglobin 24 pg (28-32)
[2017-05-14 14:24] LABS: BUN/Creatinine Ratio 11; Blood Urea Nitrogen 10 mg/dL (7-17); Calcium 8.9 mg/dL (8.4-10.2); Hemolysis Index 4
[2017-05-14 18:49] LABS: Bilirubin,Urine NEG (Negative); Blood,Urine NEG (Negative); Color,Urine Yellow (Yellow); Mucus,Urine 3+ /HPF; Nitrite,Urine NEG (Negative)
[2017-05-14] MEDS ORDERED: NORCO 7.5/325 PO ONE (23:45)
--- NOTE | 2017-05-14 23:46 | Emergency Department Report ---
ED Back Pain/Injury HPI - General Chief Complaint: Back Pain/Injury Stated Complaint: BACK PAIN Time Seen by Provider: 05/14/17 23:28 Source: patient Limitations: No Limitations - History of Present Illness Initial Comments: This is a 42 y.o. female presents with low back pain for 3 days. She is taking naproxen and ibuprofen with minimal improvement of pain. She reports falling down the stairs at home yesterday and hitting back on bottom step when she landed. The fall made back pain worse. Denies pop sound, radiating, numbness, tingling, swelling, change in voiding, or discoloration. States her back feel like it spasms at times, which is causing weakness. MD Complaint: back pain, fall (fell down the stairs at home yesterday) -: days(s) (3) Similar Symptoms Previously: No Place: home Radiation: none Severity scale (0 -10): 10 Quality: aching Consistency: constant Improves With: immobilization Worsens With: movement, sitting upright, walking Context: fall (fell yesterday down the stairs at home) Associated Symptoms: weakness. denies: confusion, chest pain, numbness, difficulty walking, cough, difficulty urinating, diaphoresis, incontinence, fever/chills, constipation, headaches, abdominal pain, loss of appetite, malaise , nausea/vomiting, rash, seizure, shortness of breath, syncope Treatments Prior to Arrival: NSAIDS - Related Data Home Medications Medication Instructions Recorded Confirmed Last Taken Aspirin [Aspirin TAB] 325 mg PO QDAY 09/16/14 10/24/15 10/24/15 Carvedilol [Coreg] 12.5 mg PO DAILY 09/16/14 10/24/15 10/24/15 Lisinopril 10 mg PO DAILY 09/16/14 10/24/15 10/24/15 Metformin HCl [metFORMIN ER] 500 mg PO BID 09/16/14 10/24/15 10/24/15 Pravastatin [Pravachol] 40 mg PO QHS 09/16/14 10/24/15 10/24/15 Topiramate [Topamax] 25 mg PO BID PRN 09/16/14 10/24/15 10/24/15 amLODIPine [Norvasc] 10 mg PO DAILY 09/16/14 10/24/15 10/24/15 Previous Rx's Medication Instructions Recorded Last Taken Type Metaxalone [Skelaxin] 800 mg PO TID PRN #21 tablet 10/24/15 Unknown Rx traMADol [Ultram] 50 mg PO Q4HR PRN #20 tablet 10/24/15 Unknown Rx Cyclobenzaprine HCl [Flexeril 5 MG 5 mg PO Q8HR PRN #10 tab 12/16/15 Unknown Rx TAB] Ondansetron [Zofran TAB] 4 mg PO Q8HR PRN #14 tablet 12/16/15 Unknown Rx Ondansetron [Zofran Odt] 4 mg PO Q6H PRN #7 tab.rapdis 11/18/16 Unknown Rx amLODIPine [Norvasc] 5 mg PO DAILY #30 tab 11/18/16 Unknown Rx traMADol [Ultram] 50 mg PO Q4HR PRN #14 tablet 11/18/16 Unknown Rx Metaxalone [Skelaxin] 800 mg PO TID #30 tablet 12/14/16 Unknown Rx Naproxen [Naprosyn] 500 mg PO BID #14 tablet 12/14/16 Unknown Rx Diphenoxylate HCl/Atropine 2 each PO QID PRN #20 tablet 02/21/17 Unknown Rx [Lomotil 2.5-0.025 mg Tablet] Ondansetron [Zofran ODT TAB] 8 mg PO Q8HR #20 tab.rapdis 02/21/17 Unknown Rx traMADol [Ultram] 50 mg PO Q6HR PRN #14 tablet 02/21/17 Unknown Rx ALBUTEROL Inhaler [ProAir HFA 2 puff IH QID PRN #1 inhalation 03/28/17 Unknown Rx Inhaler] Azithromycin 250 mg PO DAILY #6 tablet 03/28/17 Unknown Rx Ibuprofen 800 mg PO TID PRN #30 tablet 03/28/17 Unknown Rx Promethazine [Phenergan TAB] 25 mg PO Q8HR PRN #12 tab 03/28/17 Unknown Rx Cyclobenzaprine HCl [Flexeril 5 MG 5 mg PO TID PRN #20 tab 05/15/17 Unknown Rx TAB] Naproxen [Naprosyn TAB] 500 mg PO BID PRN #20 tablet 05/15/17 Unknown Rx Allergies Allergy/AdvReac Type Severity Reaction Status Date / Time morphine Allergy Itching Verified 02/21/17 07:56 Penicillins AdvReac Shortness Verified 02/21/17 07:56 of Breath IVP contrast Allergy Intermediate Hives Uncoded 02/21/17 07:56 ED Review of Systems ROS: Stated complaint: BACK PAIN Other details as noted in HPI Constitutional: denies: chills, fever Respiratory: denies: cough, shortness of breath, wheezing Cardiovascular: denies: chest pain, palpitations Gastrointestinal: denies: abdominal pain, nausea, vomiting, diarrhea Musculoskeletal: back pain (low back pain). denies: joint swelling, arthralgia Skin: denies: rash, lesions Neurological: denies: headache, weakness, paresthesias ED Past Medical Hx - Past Medical History Hyperlipidemia, "herniated disc in neck" Family history: no significant family history ED Back Pain Physical Exam - Exam General: Vital signs noted. No distress. Alert and acting appropriately. Back/Abdomen: Yes Sacroiliac Tenderness, Yes Flank Tenderness (right), No Abdominal Tenderness, No Perithoracic Tenderness, No Perilumbar Tenderness, No Straight Leg Raise Pain Neuro: Yes Normal Sensation, Yes Normal DTR's, No Motor Weakness, No Normal Gait (due to pain) ED Course Vital Signs 05/14/17 05/14/17 13:46 18:08 Temperature 98 F 98.8 F Pulse Rate 89 91 H Respiratory 18 18 Rate Blood Pressure 160/103 153/98 O2 Sat by Pulse 100 100 Oximetry Ed Back Pain Tests - Tests Tests: Normal UA, Abnormal X Rays (mild lumbar spondilosis) ED Medical Decision Making - Lab Data Result diagrams: 05/14/17 13:56 05/14/17 13:56 - Radiology Data Radiology results: report reviewed L-Spine MPRESSION: No evidence of an acute fracture or dislocation of the lumbar spine. Mild lumbar spondylosis at the L5-S1 level. - Medical Decision Making This is a 42 y.o. female presents with low back pain for 3 days. She fell down the stairs at home yesterday, which made pain worse. Patient is stable and examined by me. Xray of L-Spine obtained and No evidence of an acute fracture or dislocation of the lumbar spine. Mild lumbar spondylosis at the L5-S1 level. Obtained CBC, BMP, & UA and normal. Distress noted. Given 7.5 mg po once in ER for pain. Discussed plan to start flexeril and tramadol with patient for muscle spasm and muscle strain. Patient agrees to ED plan of care. Discharged home stable. Follow up with PCP in 3 days. Critical care attestation.: If time is entered above; I have spent that time in minutes in the direct care of this critically ill patient, excluding procedure time. ED Disposition Clinical Impression: Muscle spasm of back, Strain of muscle and tendon of back wall of thorax, initial encounter Disposition: TO HOME OR SELFCARE Is pt being admited?: No Does the pt Need Aspirin: No Condition: Stable Instructions: Muscle Strain (ED) Additional Instructions: Rest Use ice or heat on affected area for 20 minutes and off for 2 hours. Take pain medication as needed for pain. Don't drive or operate heavy machinery while taking muscle relaxers because they may cause drowsiness. Follow up with Primary Care Provider. Prescriptions: Cyclobenzaprine HCl [Flexeril 5 MG TAB] 5 mg PO TID PRN #20 tab PRN Reason: Muscle Spasm Naproxen [Naprosyn TAB] 500 mg PO BID PRN #20 tablet PRN Reason: Pain Referrals: [facility] [Outside] - 3-5 Days [facility] [Outside] - 3-5 Days [facility] [Outside] - 3-5 Days Time of Disposition: 01:13 Print Language: GEORGIAN
--- NOTE | 2017-05-15 00:39 | XRay Report ---
FINAL REPORT PROCEDURE: XR SPINE LUMBOSACRAL 2-3V TECHNIQUE: Computerized axial tomography of the lumbar spine was performed from T12 to the sacrum without contrast material. HISTORY: fell down stairs, low back pain COMPARISON: No prior studies are available for comparison. FINDINGS: L1-2: No significant abnormality. L2-3: No significant abnormality. L3-4: No significant abnormality. L4-5: No significant abnormality. L5-S1: There is mild spur formation off of the L5 and S1 vertebral bodies.. Other: The alignment is normal. The heights of the vertebral bodies and the disc spaces are maintained. No acute fracture or dislocation of the lumbar spine. The spinal canal is adequate at all levels.. IMPRESSION: No evidence of an acute fracture or dislocation of the lumbar spine. Mild lumbar spondylosis at the L5-S1 level.
[2017-05-15 01:35] VITALS: BP 146/85
== END 2017-05-15 01:33 | disposition home or self-care (01) ==
LOC: ED 13:26
DX: S29.012A Strain of muscle and tendon of back wall of thorax, initial encounter (principal); M62.830 Muscle spasm of back; Z88.5 Allergy status to narcotic agent; Z88.0 Allergy status to penicillin; Z91.041 Radiographic dye allergy status; W10.9XXA Fall (on) (from) unspecified stairs and steps, initial encounter; Y93.89 Activity, other specified; Y99.8 Other external cause status; Y92.009 Unspecified place in unspecified non-institutional (private) residence as the place of occurrence of the external cause
CPT/HCPCS: 36415; 72100; 80048; 81001; 85027; 99284

== ENCOUNTER 2017-10-12 13:00 | Emergency (ER) | payer SELFPAY ==
[2017-10-12 13:17] VITALS: BP 163/103
[2017-10-12 15:12] LABS: Bilirubin,Urine NEG (Negative); Blood,Urine NEG (Negative); Color,Urine Yellow (Yellow); Hyaline Casts,Urine 1 /LPF; Mucus,Urine 1+ /HPF; Protein,Urine <15 mg/dL mg/dL (Negative)
--- NOTE | 2017-10-12 15:44 | Emergency Department Report ---
ED General Adult HPI - General Chief complaint: Abdominal Pain Stated complaint: BACK KEEP GOING OUT/STOMACH ACHE Time Seen by Provider: 10/12/17 15:06 Source: patient Mode of arrival: Ambulatory Limitations: No Limitations - History of Present Illness Initial comments: Patient is 42 years old female with no significant past medical history. Patient presented to the ER complaining of nausea, crampy abdominal pain and watery diarrhea for the last 2 days. Patient is also complaining off back pain mainly some muscle spasm. She stated that she work as a [employer] and she stand for long period of time. Patient denied any fever, vaginal bleeding or discharge. No urinary symptoms. - Related Data Home Medications Medication Instructions Recorded Confirmed Last Taken Aspirin [Aspirin TAB] 325 mg PO QDAY 09/16/14 10/24/15 10/24/15 Carvedilol [Coreg] 12.5 mg PO DAILY 09/16/14 10/24/15 10/24/15 Lisinopril 10 mg PO DAILY 09/16/14 10/24/15 10/24/15 Metformin HCl [metFORMIN ER] 500 mg PO BID 09/16/14 10/24/15 10/24/15 Pravastatin [Pravachol] 40 mg PO QHS 09/16/14 10/24/15 10/24/15 Topiramate [Topamax] 25 mg PO BID PRN 09/16/14 10/24/15 10/24/15 amLODIPine [Norvasc] 10 mg PO DAILY 09/16/14 10/24/15 10/24/15 Previous Rx's Medication Instructions Recorded Last Taken Type Metaxalone [Skelaxin] 800 mg PO TID PRN #21 tablet 10/24/15 Unknown Rx traMADol [Ultram] 50 mg PO Q4HR PRN #20 tablet 10/24/15 Unknown Rx Cyclobenzaprine HCl [Flexeril 5 MG 5 mg PO Q8HR PRN #10 tab 12/16/15 Unknown Rx TAB] Ondansetron [Zofran TAB] 4 mg PO Q8HR PRN #14 tablet 12/16/15 Unknown Rx Ondansetron [Zofran Odt] 4 mg PO Q6H PRN #7 tab.rapdis 11/18/16 Unknown Rx amLODIPine [Norvasc] 5 mg PO DAILY #30 tab 11/18/16 Unknown Rx traMADol [Ultram] 50 mg PO Q4HR PRN #14 tablet 11/18/16 Unknown Rx Metaxalone [Skelaxin] 800 mg PO TID #30 tablet 12/14/16 Unknown Rx Naproxen [Naprosyn] 500 mg PO BID #14 tablet 12/14/16 Unknown Rx Diphenoxylate HCl/Atropine 2 each PO QID PRN #20 tablet 02/21/17 Unknown Rx [Lomotil 2.5-0.025 mg Tablet] Ondansetron [Zofran ODT TAB] 8 mg PO Q8HR #20 tab.rapdis 02/21/17 Unknown Rx traMADol [Ultram] 50 mg PO Q6HR PRN #14 tablet 02/21/17 Unknown Rx ALBUTEROL Inhaler [ProAir HFA 2 puff IH QID PRN #1 inhalation 03/28/17 Unknown Rx Inhaler] Azithromycin 250 mg PO DAILY #6 tablet 03/28/17 Unknown Rx Ibuprofen 800 mg PO TID PRN #30 tablet 03/28/17 Unknown Rx Promethazine [Phenergan TAB] 25 mg PO Q8HR PRN #12 tab 03/28/17 Unknown Rx Cyclobenzaprine HCl [Flexeril 5 MG 5 mg PO TID PRN #20 tab 05/15/17 Unknown Rx TAB] Naproxen [Naprosyn TAB] 500 mg PO BID PRN #20 tablet 05/15/17 Unknown Rx Allergies Allergy/AdvReac Type Severity Reaction Status Date / Time morphine Allergy Itching Verified 02/21/17 07:56 Penicillins AdvReac Shortness Verified 02/21/17 07:56 of Breath IVP contrast Allergy Intermediate Hives Uncoded 02/21/17 07:56 ED Review of Systems ROS: Stated complaint: BACK KEEP GOING OUT/STOMACH ACHE Other details as noted in HPI Comment: All other systems reviewed and negative Constitutional: denies: chills Respiratory: denies: cough, orthopnea, shortness of breath Cardiovascular: denies: chest pain, palpitations, dyspnea on exertion Gastrointestinal: abdominal pain, nausea, vomiting, diarrhea. denies: hematemesis, melena, hematochezia Neurological: denies: headache, weakness, numbness, paresthesias ED Past Medical Hx - Past Medical History Hx Hypertension: Yes Hx CVA: Yes (11/2012) Hx Diabetes: Yes Hx Arthritis: Yes Hx Kidney Stones: Yes Additional medical history: Hyperlipidemia, "herniated disc in neck" - Surgical History Additional Surgical History: kidney stone removal - Social History Smoking Status: Never Smoker Substance Use Type: Alcohol - Medications Home Medications: Home Medications Medication Instructions Recorded Confirmed Last Taken Type Aspirin [Aspirin TAB] 325 mg PO QDAY 09/16/14 10/24/15 10/24/15 History Carvedilol [Coreg] 12.5 mg PO DAILY 09/16/14 10/24/15 10/24/15 History Lisinopril 10 mg PO DAILY 09/16/14 10/24/15 10/24/15 History Metformin HCl [metFORMIN ER] 500 mg PO BID 09/16/14 10/24/15 10/24/15 History Pravastatin [Pravachol] 40 mg PO QHS 09/16/14 10/24/15 10/24/15 History Topiramate [Topamax] 25 mg PO BID PRN 09/16/14 10/24/15 10/24/15 History amLODIPine [Norvasc] 10 mg PO DAILY 09/16/14 10/24/15 10/24/15 History Metaxalone [Skelaxin] 800 mg PO TID PRN #21 tablet 10/24/15 Unknown Rx traMADol [Ultram] 50 mg PO Q4HR PRN #20 tablet 10/24/15 Unknown Rx Cyclobenzaprine HCl [Flexeril 5 MG 5 mg PO Q8HR PRN #10 tab 12/16/15 Unknown Rx TAB] Ondansetron [Zofran TAB] 4 mg PO Q8HR PRN #14 tablet 12/16/15 Unknown Rx Ondansetron [Zofran Odt] 4 mg PO Q6H PRN #7 tab.rapdis 11/18/16 Unknown Rx amLODIPine [Norvasc] 5 mg PO DAILY #30 tab 11/18/16 Unknown Rx traMADol [Ultram] 50 mg PO Q4HR PRN #14 tablet 11/18/16 Unknown Rx Metaxalone [Skelaxin] 800 mg PO TID #30 tablet 12/14/16 Unknown Rx Naproxen [Naprosyn] 500 mg PO BID #14 tablet 12/14/16 Unknown Rx Diphenoxylate HCl/Atropine 2 each PO QID PRN #20 tablet 02/21/17 Unknown Rx [Lomotil 2.5-0.025 mg Tablet] Ondansetron [Zofran ODT TAB] 8 mg PO Q8HR #20 tab.rapdis 02/21/17 Unknown Rx traMADol [Ultram] 50 mg PO Q6HR PRN #14 tablet 02/21/17 Unknown Rx ALBUTEROL Inhaler [ProAir HFA 2 puff IH QID PRN #1 inhalation 03/28/17 Unknown Rx Inhaler] Azithromycin 250 mg PO DAILY #6 tablet 03/28/17 Unknown Rx Ibuprofen 800 mg PO TID PRN #30 tablet 03/28/17 Unknown Rx Promethazine [Phenergan TAB] 25 mg PO Q8HR PRN #12 tab 03/28/17 Unknown Rx Cyclobenzaprine HCl [Flexeril 5 MG 5 mg PO TID PRN #20 tab 05/15/17 Unknown Rx TAB] Naproxen [Naprosyn TAB] 500 mg PO BID PRN #20 tablet 05/15/17 Unknown Rx ED Physical Exam - General Limitations: No Limitations General appearance: alert, in no apparent distress - Head Head exam: Present: atraumatic, normocephalic, normal inspection - Eye Eye exam: Present: normal appearance - ENT ENT exam: Present: normal exam, mucous membranes moist - Neck Neck exam: Present: normal inspection, full ROM. Absent: tenderness, meningismus, lymphadenopathy, thyromegaly - Respiratory Respiratory exam: Present: normal lung sounds bilaterally. Absent: respiratory distress, wheezes, rales, rhonchi, stridor, chest wall tenderness, accessory muscle use, decreased breath sounds, prolonged expiratory - Cardiovascular Cardiovascular Exam: Present: regular rate, normal rhythm, normal heart sounds - GI/Abdominal GI/Abdominal exam: Present: soft, normal bowel sounds. Absent: distended, tenderness, guarding, rebound, rigid, organomegaly, mass, bruit, pulsatile mass , hernia - Extremities Exam Extremities exam: Present: normal inspection, full ROM, normal capillary refill - Back Exam Back exam: Present: normal inspection, full ROM. Absent: tenderness, CVA tenderness (R), CVA tenderness (L), muscle spasm, paraspinal tenderness, vertebral tenderness, rash noted - Neurological Exam Neurological exam: Present: alert, oriented X3, CN II-XII intact, normal gait - Skin Skin exam: Present: warm, intact, normal color ED Course Vital Signs 10/12/17 10/12/17 13:12 15:06 Temperature 98.8 F Pulse Rate 83 Respiratory 16 18 Rate Blood Pressure 163/103 O2 Sat by Pulse 96 100 Oximetry Critical care attestation.: If time is entered above; I have spent that time in minutes in the direct care of this critically ill patient, excluding procedure time. ED Disposition Clinical Impression: Gastroenteritis, Back pain, Abdominal pain Disposition: - TO HOME OR SELFCARE Is pt being admited?: No Condition: Stable Instructions: Abdominal Pain (ED), Low Back Strain (ED) Referrals: PRIMARY CARE, [Primary Care Provider] - 3-5 Days Forms: Work/School Release Form(ED)
[2017-10-12] MEDS ORDERED: TORADOL ONE (15:51)
[2017-10-12] MEDS ORDERED: TORADOL IM ONE (18:51)
== END 2017-10-12 16:02 | disposition home or self-care (01) ==
LOC: ED 13:00
DX: K52.9 Noninfective gastroenteritis and colitis, unspecified (principal); I10 Essential (primary) hypertension; E11.9 Type 2 diabetes mellitus without complications; E78.5 Hyperlipidemia, unspecified; Z86.73 Personal history of transient ischemic attack (TIA), and cerebral infarction without residual deficits; Z79.82 Long term (current) use of aspirin; Z88.0 Allergy status to penicillin; Z88.6 Allergy status to analgesic agent; Z91.041 Radiographic dye allergy status
CPT/HCPCS: 81001; 99283; J1885